=== PATIENT | male | born 1940 | race Caucasian/White ===

== ENCOUNTER 2018-05-26 10:23 | Day surgery (SDC) | payer MEDICARE, BC ==
[~2018-05-26] VITALS: Ht 175.3 cm; Wt 129.6 kg
[2018-05-26 10:40] VITALS: BP 127/57
[2018-05-26] MEDS ORDERED: fentaNYL/PF 50MCG/1 ML 2ML syringe ONE (10:43)
[2018-05-26] MEDS ORDERED: MIDAZolam 5mg/5ml vial ONE (10:43)
[2018-05-26] MEDS ORDERED: ASPI-920 PO (10:57)
[2018-05-26] MEDS ORDERED: ESOM40CA30 PO (10:57)
[2018-05-26] MEDS ORDERED: DICL-194 PO (10:58)
[2018-05-26] MEDS ORDERED: EZET10TA14 PO (10:58)
[2018-05-26] MEDS ORDERED: DULO60CA45 PO (10:58)
[2018-05-26] MEDS ORDERED: AMLO1CAP19 PO (10:59)
[2018-05-26] MEDS ORDERED: PREG150C PO (10:59)
[2018-05-26 11:37] VITALS: BP 102/48
[2018-05-26 11:47] VITALS: BP 101/45
[2018-05-26 11:57] VITALS: BP 97/47
[2018-05-26 12:07] VITALS: BP 99/50
== END 2018-05-26 12:20 | disposition home or self-care (01) ==
LOC: GI LAB 10:23
PROVIDERS: ATTEND Internal Medicine Gastroenterology
DX: K57.30 Diverticulosis of large intestine without perforation or abscess without bleeding (principal); K92.1 Melena; D64.9 Anemia, unspecified
CPT/HCPCS: 45346; G0500; J2250; J3010; J7030; 99152; A4620